=== PATIENT | male | born 1970 | race African-American/Black ===

== ENCOUNTER → 2021-02-17 | Outpatient (CLI) | payer OTHER ==
--- NOTE | 2021-02-17 14:19 | Diagnostic Imaging Report ---
PROCEDURE: US right lower extremity venous. TECHNIQUE: Multiple real-time grayscale images were obtained over the right lower extremity in various projections. Additional spectral analysis and color Doppler duplex images were also obtained. INDICATION: Deep vein thrombus, recent surgery. FINDINGS: Exam confirms the presence of deep vein thrombus commencing at the level of the popliteal vein and extending inferiorly throughout the calf involving the posterior tibial vein as well as unnamed calf venous channels. The superficial femoral vein throughout the thigh, the profunda and the common femoral were all widely patent. IMPRESSION: 1. Occlusive deep vein thrombosis confirmed commencing at the level of the popliteal vein behind the knee and extending throughout the calf, occluding the posterior tibial vein and the peroneal vein in its trunk. 2. Common and superficial femoral veins in the thigh and groin however were patent. These results were phoned to the nurse prior to this dictation. Dictated by: Dictated on workstation # [id number]
== END ==
LOC: RAD 13:30
PROVIDERS: ATTEND Orthopaedic Surgery
DX: I82.401 Acute embolism and thrombosis of unspecified deep veins of right lower extremity (principal)

== ENCOUNTER 2021-06-18 09:00 | Outpatient (RCR) | payer OTHER | END 2021-07-25 | disposition home or self-care (01) | PROVIDERS: ATTEND Orthopaedic Surgery | DX: M94.261 Chondromalacia, right knee (principal) ==

== ENCOUNTER → 2021-06-18 | Outpatient (CLI) | payer OTHER | LOC: LABNPT 12:23 | PROVIDERS: ATTEND Nurse Practitioner Family | DX: Z20.822 Contact with and (suspected) exposure to COVID-19 (principal) | CPT/HCPCS: 87636 ==

== ENCOUNTER → 2021-06-19 | Outpatient (CLI) | payer OTHER | LOC: LAB 13:12 | PROVIDERS: ATTEND Emergency Medicine | DX: Z20.822 Contact with and (suspected) exposure to COVID-19 (principal) | CPT/HCPCS: 87636 ==

== ENCOUNTER → 2021-08-14 | Outpatient (CLI) | payer OTHER ==
[~2021-08-14] VITALS: Ht 188 cm; Wt 103.5 kg
[~2021-08-14] MED LIST: AMLO1TAB55 PO; LEVO5TAB28 PO; RIVA10TA PO
== END | disposition home or self-care (01) ==
LOC: PREOP 05:37
PROVIDERS: ATTEND Internal Medicine
DX: Z01.818 Encounter for other preprocedural examination (principal)

== ENCOUNTER 2021-08-22 07:34 | Day surgery (SDC) | payer OTHER ==
--- NOTE | 2021-08-14 06:41 | HISTORY AND PHYSICAL ---
DATE OF SERVICE: COLONOSCOPY HISTORY AND PHYSICAL HISTORY: The patient is a 51-year-old white male being referred by Dr. Concepcion for screening colonoscopy. He is deemed to be of average risk as he is not aware of any family history for colon cancer. Denies bright red blood per rectum, melena, abdominal pain or change in bowel habit. PAST MEDICAL HISTORY: Significant for right DVT diagnosed 5 months ago following arthroscopic right meniscal tear repair on the right knee. He had no previous history of thromboembolic disease and has had no chest pain or shortness of breath and they had told him that anticoagulant therapy would be discontinued towards the end of July. He is currently taking Xarelto, presumably 20 mg daily. He has a history of hypertension. His only other medication is Skyla 5/40 mg 1 daily. Other than arthroscopic surgery, he has had no other surgical procedures. FAMILY HISTORY: He is not aware of any family history for colon cancer. Mother has history of hypertension, which was diagnosed around the age of 55. Father had type 2 diabetes diagnosed at the age of 72 and a sister who has had hypertension diagnosed around the age of 40. 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 He has had occasional small volume alcohol use. Has 65-omzh-fter smoking history, quit in 1998. REVIEW OF SYSTEMS: CONSTITUTIONAL: Denies night sweats, chills, fever, change in weight. CARDIOVASCULAR: Denies chest pain, shortness of breath, orthopnea, PND, pedal edema. GASTROINTESTINAL: As noted in the HPI. PULMONARY: Denies cough, wheezing or shortness of breath. PHYSICAL EXAMINATION: GENERAL: Reveals pleasant black male, who appears to be in no acute distress. VITAL SIGNS: Blood pressure 130/88, weight 233 pounds. HEENT: Unremarkable. Sclerae nonicteric. CHEST: Clear to auscultation. CARDIOVASCULAR: Reveals regular rate and rhythm without murmur, S3 or S4. NECK: Revealed no JVD, adenopathy or bruits. ABDOMEN: Soft, supple without mass, organomegaly or tenderness. He has evidence for diastasis recti and a small reducible umbilical hernia. Nontender. No induration noted. EXTREMITIES: Reveal no clubbing or edema. ASSESSMENT AND PLAN: The patient is being set up for his first screening colonoscopy, deemed to be of average risk as noted above. We will set the procedure up for 08/22/2021 and he will discontinue Xarelto on the when he will have finished up a 6-month course of therapy for first provoked right lower extremity DVT. I thank you for the referral of this pleasant gentleman. Job ID: [id number] DocumentID: [id number] Dictated Date: 07/23/2021 16:55:53 Battalion Chief Date: 07/23/2021 17:13:18 Dictated By: AMIRA TOMAS MD
[~2021-08-22] VITALS: Ht 188 cm; Wt 103.5 kg
[2021-08-22] MEDS ORDERED: PROPOFOL INJECTION 50 ML IV ONE (07:40)
[2021-08-22] MEDS ORDERED: LACTATED RINGERS 1,000 ML IV ONE (07:40)
[2021-08-22] MEDS ORDERED: MIDAZOLAM 2 MG/2 ML (VERSED) VIAL ONE (07:40)
[2021-08-22] MEDS ORDERED: LACTATED RINGERS 1,000 ML IV STA (07:47)
[2021-08-22] MEDS ORDERED: LIDOCAINE JELLY 2% 6 ML SYRINGE MM PRN (08:00)
[2021-08-22 08:02] VITALS: BP 142/85
--- NOTE | 2021-08-22 08:02 | Pre-Op Note & Conscious Sedat ---
Pre-Operative Progress Note H&P Reviewed The H&P was reviewed, patient examined and no changes noted. Date H&P Reviewed: Aug 22, 2021 Time H&P Reviewed: 07:50 Conscious Sedation Pre-Proced ASA Score 2 For ASA 3 and 4: Consider anesthesia and medical clearance. Also, for patients with a history of failed moderate sedation consider anesthesia. Airway Lungs Heart ASA score ASA 1: a normal healthy patient ASA 2: a patient with a mild systemic disease (mid diabetes, controlled hypertension, obesity ASA 3: a patient with a severe systemic disease that limits activity (angina, COPD, prior Myocardial infarction) ASA 4: a patient with an incapacitating disease that is a constant threat to life (CHF, renal failure) ASA 5: a moribund patient not expected to survive 24 hrs. (ruptured aneurysm) ASA 6: a declared brain- patient whose organs are being harvested. For emergent operations, add the letter E after the classification Mallampati Classification Grade 2 Sedation Plan Analgesia, Amnesia, Plan communicated to team members, Discussed options with patient/fam, Discussed risks with patient/fam The patient is an appropriate candidate to undergo the planned procedure, sedation, and anesthesia. The patient immediately re-assessed prior to indication. AMIRA TOMAS MD Aug 22, 2021 08:02
[2021-08-22 08:35] VITALS: BP 110/59
[2021-08-22 08:38] VITALS: BP 110/59
[2021-08-22 09:05] VITALS: BP 112/65
--- NOTE | 2021-08-22 09:49 | Anesthesia-General Post-Op ---
MAC Patient Condition Mental Status/LOC: Same as Preop Cardiovascular: Satisfactory Nausea/Vomiting: Absent Respiratory: Satisfactory Pain: Controlled Complications: Absent Post Op Complications Complications None Follow Up Care/Instructions Patient Instructions None needed. Anesthesiology Discharge Order Discharge Order Patient is doing well, no complaints, stable vital signs, no apparent adverse anesthesia problems. No complications reported per nursing. JENNIFER LOPEZ CRNA Aug 22, 2021 09:49
--- NOTE | 2021-08-22 12:58 | OPERATIVE REPORT ---
DATE OF SERVICE: COLONOSCOPY SUMMARY INDICATION FOR THE PROCEDURE: Screening colonoscopy. The patient was placed in the left lateral decubitus position. Prior to undergoing colonoscopy, digital rectal evaluation was performed. Anal sphincter tone was normal and the perianal reflexes intact. Prostate is mildly enlarged and anodular to digital inspection. No other abnormalities were noted on digital inspection of anal canal or distal rectal vault. The colonoscope was then inserted into the rectum and under direct visualization advanced to cecum. The cecum was identified by identification of ileocecal valve and cecal strap. Photographic documentation was obtained. Careful inspection was made as colonoscope withdrawn. Quality of prep was good. FINDINGS: There was no evidence for internal or external hemorrhoids and the rectum was unremarkable. Beginning in the mid sigmoid colon and scattered throughout the remainder of the colon were moderate number of small diverticulum without evidence for diverticulitis. One adenomatous appearing 6 mm sessile polyp was noted in the distal ascending colon. It was biopsied and ablated with no blood loss via hot forceps. Other than several small diverticulum, the remainder of the ascending colon and cecum were unremarkable. ASSESSMENT: 1. A 6 mm sessile adenomatous appearing polyp was removed from the distal ascending colon. We will await histopathology report and then make recommendations for future surveillance colonoscopy. The patient had a moderate number of small diverticulum scattered from the mid sigmoid colon to the proximal ascending colon without evidence for diverticulitis. Digital evaluation of the prostate was compatible with mild BPH. I thank you for the referral of this pleasant gentleman. Job ID: [id number] DocumentID: [id number] Dictated Date: 08/22/2021 08:37:01 Wharf Builder Date: 08/22/2021 12:57:22 Dictated By: AMIRA TOMAS MD
== END 2021-08-22 09:25 | disposition home or self-care (01) ==
LOC: ENDO 07:34
PROVIDERS: ATTEND Internal Medicine
DX: Z12.11 Encounter for screening for malignant neoplasm of colon (principal); D12.2 Benign neoplasm of ascending colon; K57.30 Diverticulosis of large intestine without perforation or abscess without bleeding; N40.0 Benign prostatic hyperplasia without lower urinary tract symptoms; I10 Essential (primary) hypertension; Z79.01 Long term (current) use of anticoagulants; Z86.718 Personal history of other venous thrombosis and embolism; Z79.899 Other long term (current) drug therapy; Z87.891 Personal history of nicotine dependence
CPT/HCPCS: 88305